=== PATIENT | male | born 1960 | race Caucasian/White ===

== ENCOUNTER 2017-12-31 16:09 | Inpatient (IN) ==
[2017-12-31 17:05] LABS: Baso % (Auto) 0.1 % (0.0-2.0); Eos % (Auto) 0.1 % (0.0-4.0); Hematocrit 49.5 % (39.0-51.0); Hemoglobin 17.7 gm/dL (13.0-17.0); Lymph # (Auto) 0.9 th/mm3 (1.0-4.8); Lymph % (Auto) 13.8 % (9.0-44.0); Mean Corpuscular HGB Conc 35.7 % (32.0-36.0); Mean Corpuscular Hemoglobin 31.5 pg (27.0-34.0); Mean Corpuscular Volume 88.4 fL (80.0-100.0); Mean Platelet Volume 9.8 fL (7.0-11.0); Neut # (Auto) 4.5 th/mm3 (1.8-7.7); Platelet Count 294 th/mm3 (150-450); Red Cell Distribution Width 13.3 % (11.6-17.2); White Blood Count 6.4 th/mm3 (4.0-11.0)
--- NOTE | 2017-12-31 17:07 | ED ---
HPI General Chief complaint: Nausea/Vomiting/Diarrhea Stated complaint: ABD Pain/Evac Time Seen by Provider: 12/31/17 16:30 Source: patient and old records reviewed Mode of arrival: EMS Limitations: no limitations History of Present Illness HPI narrative: This is a 57-year-old man presents to the emergency department complaining of nausea vomiting. He has some abdominal pain. [facility] was just [facility] according [facility] records. He has an ostomy for previous ulcerative colitis with colectomy. He states that it has been protruding some from his ostomy site. Been productive of green liquid stools. No significant change. Is been vomiting some recently. No abdominal distention. Related Data Home Medications Medication Instructions Recorded Confirmed benztropine 1 mg PO BID 12/31/17 12/31/17 divalproex [Depakote] 250 mg PO BID 12/31/17 12/31/17 perphenazine 2 mg PO DAILY 12/31/17 12/31/17 Allergies Allergy/AdvReac Type Severity Reaction Status Date / Time chlorpromazine AdvReac Severe DYSTONIA Verified 12/31/17 16:23 prochlorperazine AdvReac Severe DYSTONIAS Verified 12/31/17 16:23 Review of Systems ROS Unobtainable All other systems reviewed negative except as stated in HPI [facility] Medical History Medical History Ulcerative (chronic) enterocolitis (Acute) Surgical History Surgical History Knee joint replacement by other means (Acute) Social History Social History Substance History: No History of Abuse Second Hand Smoke Exposure: Yes Smoking Status: Former smoker How Often Do You Have a Drink Containing Alcohol: Monthly or less Recent Travel in [facility] within the Last 8 Weeks: No Recent Out of Country Travel within the Last 8 Weeks: No Exam Narrative Exam Narrative: GENERAL: Generally well-appearing 57-year-old man, little bit disheveled, nontoxic. SKIN: Focused skin assessment warm/dry. HEAD: Atraumatic. Normocephalic. EYES: Pupils equal and round. No scleral icterus. No injection or drainage. ENT: No nasal bleeding or discharge. Mucous membranes pink and moist. NECK: Trachea midline. No JVD. CARDIOVASCULAR: Regular rate and rhythm. No murmur appreciated. RESPIRATORY: No accessory muscle use. Clear to auscultation. Breath sounds equal bilaterally. GASTROINTESTINAL: Abdomen soft, nontender. Ostomy is productive of thin green liquid stools. There is no significant prolapse. Ostomy is patent. MUSCULOSKELETAL: No obvious deformities. No clubbing. No cyanosis. No edema. Course Initial Documented Vital Signs Temperature 97.2 F L 12/31/17 16:20 Pulse Rate 97 H 12/31/17 16:20 Respiratory Rate 20 12/31/17 16:20 Blood Pressure 131/95 H 12/31/17 16:20 Pulse Oximetry 97 12/31/17 16:20 Last Documented Vital Signs Temperature 97.2 F L 12/31/17 16:20 Pulse Rate 69 12/31/17 20:27 Respiratory Rate 16 12/31/17 20:27 Blood Pressure 145/97 H 12/31/17 20:27 Pulse Oximetry 95 12/31/17 20:27 Medical Decision Making MDM Narrative Medical decision making narrative: Well 57-year-old man, reportedly homeless, here ostomy is been productive of no change. Benign abdominal exam. Will check x-ray of the abdomen and make sure there is no obstruction given the vomiting. Clinically ostomy has been productive. Labs have been sent as well. Expect this will be normal. Recommend symptomatic treatment. @ 7:15 PM --- Accepted in transfer of care from Dr. Myers for follow-up of pending CT pending labs and patient disposition with expected plan of observation admission (S) Call from lab regarding abnormal potassium of 2.8 with patient with multiple episodes of vomiting BUN/creatinine GFR pending. CT abdomen and pelvis noncontrast consistent with partial small bowel obstruction patient with worsening renal function consistent with probable volume depletion and volume contracture with renal insufficiency also noted to have hypokalemia and hyponatremia patient given normal saline as well as IV potassium replacement; call placed to [facility] MD service ---accepted per Dr Francisco. Medical Records Medical records reviewed: Yes I reviewed the patient's medical records. Lab Data Result diagrams: 12/31/17 16:35 12/31/17 18:46 Lab Results 12/31/17 12/31/17 12/31/17 Range/Units 16:35 18:46 18:50 WBC 6.4 (4.0-11.0) th/mm3 RBC 5.60 (4.50-5.90) mil/mm3 Hgb 17.7 H (13.0-17.0) gm/dL Hct 49.5 (39.0-51.0) % MCV 88.4 (80.0-100.0) fL MCH 31.5 (27.0-34.0) pg MCHC 35.7 (32.0-36.0) % RDW 13.3 (11.6-17.2) % Plt Count 294 (150-450) th/mm3 MPV 9.8 (7.0-11.0) fL Neut % (Auto) 70.0 (16.0-70.0) % Lymph % (Auto) 13.8 (9.0-44.0) % [place] % (Auto) 16.0 H (0.0-8.0) % Eos % (Auto) 0.1 (0.0-4.0) % Baso % (Auto) 0.1 (0.0-2.0) % Neut # (Auto) 4.5 (1.8-7.7) th/mm3 Lymph # (Auto) 0.9 L (1.0-4.8) th/mm3 [place] # (Auto) 1.0 H (0.0-0.9) th/mm3 Eos # (Auto) 0.0 (0.0-0.4) th/mm3 Baso # (Auto) 0.0 (0.0-0.2) th/mm3 WBC Differential . Differential Comment Auto diff final Sodium 128 L (136-145) meq/L Potassium 2.8 L* (3.5-5.1) meq/L Chloride 87 L (98-107) meq/L Carbon Dioxide 26.3 (21.0-32.0) meq/L Anion Gap 15 (5-15) meq/L BUN 57 H (7-18) mg/dL Creatinine 1.93 H (0.60-1.30) mg/dL Estimated GFR 36 L (>89) mL/min Random Glucose 181 H (74-106) mg/dL Calcium 9.2 (8.5-10.1) mg/dL Total Bilirubin 0.8 (0.2-1.0) mg/dL AST 53 H (15-37) U/L ALT 89 H (12-78) U/L Alkaline Phosphatase 119 H (45-117) U/L Total Protein 8.2 (6.4-8.2) g/dL Albumin 4.2 (3.4-5.0) g/dL Lipase 160 (73-393) U/L Urine Color Yellow (Yellw/Straw) Urine Clarity Hazy H (Clear) Urine pH 5.0 (5.0-8.5) Ur Specific [place] 1.020 (1.002-1.035) Urine Protein Negative (Neg-Trace) mg/dL Urine Glucose (UA) Negative (Negative) mg/dL Urine Ketones Trace (Negative) mg/dL Urine Occult Blood Negative (Negative) Urine Nitrate Negative (Negative) Urine Bilirubin Negative (Negative) Urine Urobilinogen Less than 2 (Less than 2) mg/dL Ur Leukocyte Esterase Negative (Negative) Urine RBC Less than 1 (0-3) /hpf Urine WBC 1 (0-5) /hpf Ur Squamous Epith Cells <1 (0-5) /hpf Hyaline Casts 18 (0-3) /lpf Urine Mucus Few H (Occasional) /lpf Micro UA Comment Culture not ind Urine Culture Comments Culture not ind Imaging Data Radiologist's impression: ITS Impressions Abdomen X-Ray 12/31/17 16:57 CONCLUSION: Findings suspicious for small bowel obstruction. Abdomen/Pelvis CT 12/31/17 20:01 CONCLUSION: 1. Dilated small bowel in the upper abdomen with decompressed small bowel in the more distal lower abdomen concerning for some degree of obstruction. The transition point is not clearly seen. 2. Patient appears to be status post colectomy. There is an ostomy site in the right lower quadrant. 3. Sclerosis at the femoral head regions bilaterally concerning for prior avascular necrosis. Discharge Plan Discharge Disposition Patient Disposition: 30 Still Patient Discharge Condition Condition: Stable Discharge Details Diagnosis: Vomiting, Partial obstruction of small intestine, Mild renal insufficiency, Hypokalemia Physicians Team ED Provider: Rashmi Jimenez Primary Care Provider: Primary Care Shanda Miranda Rxs /Orders / Referrals /Forms Prescriptions: No Action perphenazine 2 mg Tablet 2 mg PO DAILY RF: 0 divalproex [Depakote] 250 mg Tablet,Delayed Release (Dr/Ec) 250 mg PO BID RF: 0 benztropine 1 mg Tablet 1 mg PO BID RF: 0 Status ED Status: With Doctor
--- NOTE | 2017-12-31 17:28 | XR ---
EXAM DATE: 12/31/2017 5:19 PM EDT AGE/SEX: 57 years / Male INDICATIONS: Abdominal pain/vomiting for 4 days. CLINICAL DATA: This is the patient's initial encounter. Patient reports that signs and symptoms have been present for 1 day and indicates a pain score of 5/10. MEDICAL/SURGICAL HISTORY: None. . colostomy. COMPARISON: No prior exams available for comparison. FINDINGS: Large air-fluid levels present in the stomach. There are scattered air-fluid levels and proximal smal l bowel compared to distal. Colostomy is seen in the right lower quadrant. Lung bases are clear. Ther e is no free air. Extensive of previous abdominal surgery changes are noted. CONCLUSION: Findings suspicious for small bowel obstruction. Electronically signed by: Xander Porras MD 12/31/2017 5:26 PM EDT
[2017-12-31 19:12] LABS: Bilirubin,Urine Negative (Negative); Clarity,Urine Hazy (Clear); Color,Urine Yellow (Yellw/Straw); Glucose,Urine (UA) Negative (Negative); Hyaline Casts,Urine 18 /lpf (0-3); Leukocyte Esterase,Urine Negative (Negative); Mucus,Urine Few /lpf (Occasional); Nitrite,Urine Negative (Negative); Squamous Epithelial Cell,Urine <1 /hpf (0-5)
[2017-12-31 19:39] LABS: Alanine Aminotransferase 89 U/L (12-78); Albumin 4.2 g/dL (3.4-5.0); Alkaline Phosphatase 119 U/L (45-117); Anion Gap 15 meq/L (5-15); Aspartate Aminotransferase 53 U/L (15-37); Blood Urea Nitrogen 57 mg/dL (7-18); Calcium 9.2 mg/dL (8.5-10.1); Carbon Dioxide 26.3 meq/L (21.0-32.0); Chloride 87 meq/L (98-107); Glomerular Filtration Rate 36 mL/min (>89); Glucose,Random 181 mg/dL (74-106); Lipase 160 U/L (73-393); Sodium 128 meq/L (136-145); Total Protein 8.2 g/dL (6.4-8.2)
[2017-12-31 19:41] LABS: Potassium 2.8 meq/L (3.5-5.1)
[2017-12-31] MEDS ORDERED: Potassium Chlor 10 mEq Premix 10 MEQ/100 ML PIGGYBACK IV.SIG ONE (20:01)
[2017-12-31] MEDS: Sod Chloride 0.9% Inj 1,000 ML IV.CONT SCH (20:23)
--- NOTE | 2017-12-31 21:24 | CT ---
EXAM DATE: 12/31/2017 8:23 PM EDT AGE/SEX: 57 years / Male INDICATIONS: Abdominal pain left lower quadrant. Nausea and vomiting. CLINICAL DATA: This is the patient's initial encounter. Patient reports that signs and symptoms have been present for 1 day and indicates a pain score of 7/10. MEDICAL/SURGICAL HISTORY: . Ulcerative colitis. Colostomy. RADIATION DOSE: 4.66 CTDI (mGy) COMPARISON: No prior exams available for comparison. TECHNIQUE: Multiple contiguous axial images were obtained through the abdomen. Images were obtained using multiple row detector helical technique. Using automated exposure control and adjustment of the mA and/or kV according to patient size, radiation dose was kept as low as reasonably achievable to o btain optimal diagnostic quality images. DICOM format image data is available electronically for rev iew and comparison. FINDINGS: Lower Lungs: There is increased density at the posterior lower lobes bilaterally being worse on the r ight likely related to dependent atelectasis. There is a mild amount of pericardial fluid seen. Liver: The liver has a homogeneous density without space-occupying lesion. There is no dilation of th e biliary tree. Spleen: Homogeneous density without enlargement. Pancreas: Unremarkable without mass or calcification. Kidneys: Normal in size and shape. No evidence of mass or hydronephrosis. Adrenal Glands: Unremarkable. Aorta: The aorta and proximal iliac vessels are grossly unremarkable without aneurysmal dilation. Bowel/Mesentery: There is distended small bowel in the upper abdomen. The small bowel measures up to 5 cm in diameter. The distal small bowel is decompressed. A clear transition point is not seen. The patient appears have an ostomy site in the right lower quadrant. There appears to be a suture line in the expected location of the rectum and distal sigmoid colon. The patient appears to be status post colectomy. Abdominal Wall: Again noted is the ostomy site in the right lower quadrant. Surgical fasteners are s een at the midline anterior abdominal wall. Retroperitoneum: No evidence of adenopathy in the retrocrural, para-aortic, or deep pelvic regions. Bladder: Contours are smooth. Reproductive Organs: No abnormal masses or calcifications seen. Inguinal: The inguinal region is unremarkable without evidence of adenopathy. Bony Structures: There is increased density at the femoral heads bilaterally concerning for avascula r necrosis. There are some degenerative change at the hip joints. CONCLUSION: 1. Dilated small bowel in the upper abdomen with decompressed small bowel in the more distal lower a bdomen concerning for some degree of obstruction. The transition point is not clearly seen. 2. Patient appears to be status post colectomy. There is an ostomy site in the right lower quadrant. 3. Sclerosis at the femoral head regions bilaterally concerning for prior avascular necrosis. Electronically signed by: Delvis Nova MD 12/31/2017 9:22 PM EDT
[2017-12-31] MEDS ORDERED: Temazepam 15 MG Capsule PO PRN (23:13)
[2017-12-31] MEDS ORDERED: Bisacodyl 10 MG Supp RECTAL PRN (23:13)
[2017-12-31] MEDS ORDERED: Potassium Chlor 20 mEq Premix 20 MEQ/100 ML PIGGYBACK IV.SIG ONE (23:16)
[2018-01-01] MEDS: Sod Chloride 0.9% Inj 1,000 ML IV.CONT SCH ×5 (03:51→17:40)
--- NOTE | 2018-01-01 05:04 | P.HP ---
History of Present Illness Service: [facility] Primary Care Physician: No Primary Care Physician Chief Complaint: Colostomy not working History of Present Illness: 57-year-old male with a past medical history significant for ulcerative colitis status post colostomy presents to the emergency department for the evaluation of his colostomy not working 1 day. The patient reported nausea and vomiting that started yesterday morning. He endorses intermittent chills and a distended abdomen. Patient also reports left-sided chest pain and shortness of breath. He states the chest pain is nonradiating. The patient denies any fevers. No lateralizing signs/symptoms. Inpatient Certification: I certify that the inpatient services were ordered in accordance with Medicare regulations governing the order. This includes certification that hospital inpatient services are reasonable and necessary and in the case of services not specified as inpatient-only under 42 CFR 419.22(n), that they are appropriately provided as inpatient services in accordance to with the 2-midnight benchmark under 43 CFR 412.3(e) Estimated Total Length of Stay (Days): 2 Plans for Post Hospital Care: Not yet determined Review of Systems All other systems reviewed negative except as stated in [facility] - History History Provided By: Patient - Medical History Medical History: Medical History (Last Updated 12/31/17 @ 00:24 by Dilma Zabala) Ulcerative (chronic) enterocolitis (Acute) - Surgical History Surgical History: Surgical History (Last Updated 12/31/17 @ 00:24 by Dilma Zabala) Knee joint replacement by other means (Acute) - Tobacco History Second Hand Smoke Exposure: Yes Smoking Status: Former smoker - Alcohol History How Often Do You Have a Drink Containing Alcohol: Monthly or less - Substance Use History Substance History: No History of Abuse - Travel History Recent Travel in the [place] Within the Last 8 Weeks: No Recent Travel Out of the Country Within the Last 8 Weeks: No - Immunization History Tetanus Immunization: >5 Years Hx Influenza Vaccine This Season: Yes Medications and Allergies Active Medications: Active Medications Al Hydroxide/Mg Hydroxide (Milk Of Missy Liq) 30 ml PO Q12H PRN PRN Reason: Mild Constipation Bisacodyl (Dulcolax Supp) 10 mg RECTAL DAILY PRN PRN Reason: SEVERE CONSITIPATION Sodium Chloride (Ns Inj) 1,000 mls @ 250 mls/hr IV.CONT .Q4H [facility] Last Admin: 01/01/18 03:51 Dose: 250 mls/hr Potassium Chloride/Sodium Chloride (Ns + Kcl 20 Meq Inj) 1,000 mls @ 84 mls/hr IV.CONT .[id number] [facility] Last Admin: 01/01/18 01:44 Dose: 84 mls/hr Lactulose (Lactulose Liq) 30 ml PO DAILY PRN PRN Reason: SEVERE CONSITIPATION Ondansetron HCl (Zofran Inj) 4 mg IV.PUSH Q6H PRN PRN Reason: NAUSEA OR VOMITING Senna/Docusate Sodium (Nata-Colace) 1 tab PO BID [facility] Sennosides (Senokot) 17.2 mg PO Q12H PRN PRN Reason: Moderate Constipation Temazepam (Restoril) 15 mg PO HS PRN PRN Reason: INSOMNIA Allergies Allergy/AdvReac Type Severity Reaction Status Date / Time chlorpromazine AdvReac Severe DYSTONIA Verified 12/31/17 16:23 prochlorperazine AdvReac Severe DYSTONIAS Verified 12/31/17 16:23 Home Medications Medication Instructions Recorded Confirmed Type benztropine 1 mg PO BID 12/31/17 12/31/17 History divalproex [Depakote] 250 mg PO BID 12/31/17 12/31/17 History perphenazine 2 mg PO DAILY 12/31/17 12/31/17 History Exam Vital signs: Vital Signs 12/31/17 16:20 12/31/17 16:28 12/31/17 18:48 Temperature 97.2 F L Pulse Rate 97 H 85 Respiratory Rate 20 19 Blood Pressure 131/95 H 136/92 H Pulse Oximetry 97 94 L 95 12/31/17 20:27 01/01/18 00:00 01/01/18 03:59 Temperature Pulse Rate 69 76 66 Respiratory Rate 16 18 16 Blood Pressure 145/97 H 137/86 120/79 Pulse Oximetry 95 94 L 96 Intake & Output 12/31/17 12/31/17 01/01/18 06:59 18:59 06:59 Intake Total 1000 / 1000 Output Total 400 / 400 Balance 600 / 600 Weight 62.142 kg Intake: IV 1000 / 1000 NS Inj 1,000 ML @ 250 mls/hr IV 1000 / 1000 .CONT .Q4H [facility] Rx#:[id number] Output: Emesis 400 / 400 Other: # Emeses 2 Narrative: Gen.: No acute distress Head: Normocephalic. Atraumatic. EENT: Pupils equal round and reactive to light. Nose without drainage. Airway intact. Throat without injection. Cardiovascular: Regular rate and rhythm. No murmurs, rubs or gallops. Respiratory: Lungs clear to auscultation bilaterally. No wheezes or rhonchi. Abdomen: Soft, nontender, positive distention. No peritoneal signs. Colostomy in place with gas in the bag. Musculoskeletal: No gross deformities. No edema. Skin: No obvious rashes or erythema. Neuro: Sensory and motor grossly intact. Cranial nerves II through XII grossly intact. Results - Labs CBC & Chem 7: 12/31/17 16:35 12/31/17 18:46 Labs: Laboratory Results - last 24 hr 12/31/17 12/31/17 12/31/17 16:35 18:46 18:50 WBC 6.4 RBC 5.60 Hgb 17.7 H Hct 49.5 MCV 88.4 MCH 31.5 MCHC 35.7 RDW 13.3 Plt Count 294 MPV 9.8 Neut % (Auto) 70.0 Lymph % (Auto) 13.8 [place] % (Auto) 16.0 H Eos % (Auto) 0.1 Baso % (Auto) 0.1 Neut # (Auto) 4.5 Lymph # (Auto) 0.9 L [place] # (Auto) 1.0 H Eos # (Auto) 0.0 Baso # (Auto) 0.0 WBC Differential . Differential Comment Auto diff final Sodium 128 L Potassium 2.8 L* Chloride 87 L Carbon Dioxide 26.3 Anion Gap 15 BUN 57 H Creatinine 1.93 H Estimated GFR 36 L Random Glucose 181 H Calcium 9.2 Total Bilirubin 0.8 AST 53 H ALT 89 H Alkaline Phosphatase 119 H Total Protein 8.2 Albumin 4.2 Lipase 160 Urine Color Yellow Urine Clarity Hazy H Urine pH 5.0 Ur Specific [place] 1.020 Urine Protein Negative Urine Glucose (UA) Negative Urine Ketones Trace Urine Occult Blood Negative Urine Nitrate Negative Urine Bilirubin Negative Urine Urobilinogen Less than 2 Ur Leukocyte Esterase Negative Urine RBC Less than 1 Urine WBC 1 Ur Squamous Epith Cells <1 Hyaline Casts 18 Urine Mucus Few H Micro UA Comment Culture not ind Urine Culture Comments Culture not ind - Imaging Impressions Abdomen X-Ray 12/31/17 16:57 CONCLUSION: Findings suspicious for small bowel obstruction. Abdomen/Pelvis CT 12/31/17 20:01 CONCLUSION: 1. Dilated small bowel in the upper abdomen with decompressed small bowel in the more distal lower abdomen concerning for some degree of obstruction. The transition point is not clearly seen. 2. Patient appears to be status post colectomy. There is an ostomy site in the right lower quadrant. 3. Sclerosis at the femoral head regions bilaterally concerning for prior avascular necrosis. Caprini VTE Risk Assessment Caprini VTE Risk Assessment: No/Low Risk (score <= 1) Caprini Risk Assessment Model: Point Value = 1 Point Value = 2 Point Value = 3 Point Value = 5 Age 41-60 Minor surgery BMI > 25 kg/m2 Swollen legs Varicose veins or History of unexplained or recurrent spontaneous Oral contraceptives or hormone replacement Sepsis (< 1 month) Serious lung disease, including pneumonia (< 1 month) Abnormal pulmonary function Acute myocardial infarction Congestive heart failure (< 1 month) History of inflammatory bowel disease Medical patient at bed rest Age 61-74 Arthroscopic surgery Major open surgery (> 45 min) Laparoscopic surgery (> 45 min) Malignancy Confined to bed (> 72 hours) Immobilizing plaster cast Central venous access Age >= 75 History of VTE Family history of VTE Factor V Leiden Prothrombin [id number] Lupus anticoagulant Anticardiolipin antibodies Elevated serum homocysteine Heparin-induced thrombocytopenia Other congenital or acquired thrombophilia Stroke (< 1 month) Elective arthroplasty Hip, pelvis, or leg fracture Acute spinal cord injury (< 1 month) Prophylaxis Regimen: Total Risk Factor Score Risk Level Prophylaxis Regimen 0-1 Low Early ambulation 2 Moderate Order ONE of the following: *Sequential Compression Device (SCD) *Heparin 5000 units SQ BID 3-4 Higher Order ONE of the following medications: *Heparin 5000 units SQ TID *Enoxaparin/Lovenox 40 mg SQ daily (WT < 150 kg, CrCl > 30 mL/min) *Enoxaparin/Lovenox 30 mg SQ daily (WT < 150 kg, CrCl > 10-29 mL/min) *Enoxaparin/Lovenox 30 mg SQ BID (WT < 150 kg, CrCl > 30 mL/min) AND/OR *Sequential Compression Device (SCD) 5 or more Highest Order ONE of the following medications: *Heparin 5000 units SQ TID (Preferred with Epidurals) *Enoxaparin/Lovenox 40 mg SQ daily (WT < 150 kg, CrCl > 30 mL/min) *Enoxaparin/Lovenox 30 mg SQ daily (WT < 150 kg, CrCl > 10-29 mL/min) *Enoxaparin/Lovenox 30 mg SQ BID (WT < 150 kg, CrCl > 30 mL/min) AND *Sequential Compression Device (SCD) Assessment and Plan - Plan Assessment/plan: 1. Partial small bowel obstruction CT of the abdomen/pelvis shows a dilated small bowel in the upper abdomen with decompressed small bowel in the distal lower abdomen concerning for some degree of obstruction. Transition point not clearly visualized. N.p.o. General surgery consulted, appreciate recommendations 2. Hypokalemia Patient's potassium 2.8 Status post IV repletion Monitor BMP 3. Chest pain ACS rule out pending; serial troponins/EKGs FEN N.p.o. Electrolytes: As above NS +20 KCl at 84 cc/hour
[2018-01-01 09:56] LABS: Baso % (Auto) 0.1 % (0.0-2.0); Eos % (Auto) 0.5 % (0.0-4.0); Hematocrit 42.2 % (39.0-51.0); Hemoglobin 14.4 gm/dL (13.0-17.0); Lymph # (Auto) 0.8 th/mm3 (1.0-4.8); Lymph % (Auto) 12.9 % (9.0-44.0); Mean Corpuscular HGB Conc 34.1 % (32.0-36.0); Mean Corpuscular Hemoglobin 30.7 pg (27.0-34.0); Mean Corpuscular Volume 89.8 fL (80.0-100.0); Mean Platelet Volume 10.1 fL (7.0-11.0); Mono # (Auto) 1.2 th/mm3 (0.0-0.9); Mono % (Auto) 17.8 % (0.0-8.0); Neut # (Auto) 4.5 th/mm3 (1.8-7.7); Neut % (Auto) 68.7 % (16.0-70.0); Platelet Count 180 th/mm3 (150-450); Red Cell Distribution Width 12.9 % (11.6-17.2); White Blood Count 6.5 th/mm3 (4.0-11.0)
[2018-01-01 10:16] LABS: Anion Gap 10 meq/L (5-15); Blood Urea Nitrogen 36 mg/dL (7-18); Calcium 7.5 mg/dL (8.5-10.1); Carbon Dioxide 25.7 meq/L (21.0-32.0); Chloride 99 meq/L (98-107); Creatine Kinase 240 U/L (39-308); Glomerular Filtration Rate 73 mL/min (>89); Glucose,Random 73 mg/dL (74-106); Magnesium 2.2 mg/dL (1.5-2.5); Potassium 3.5 meq/L (3.5-5.1); Sodium 135 meq/L (136-145)
[2018-01-01] MEDS: Senna/Docusate Sodium 8.6/50 MG Tablet PO SCH ×2 (10:22→21:14)
[2018-01-01 10:27] LABS: Platelet Morphology Normal (Normal)
[2018-01-01 12:10] LABS: Creatine Kinase 188 U/L (39-308)
--- NOTE | 2018-01-01 13:16 | ECG ---
Date Performed: 01/01/2018 Time Performed: 05:59:22 PTAGE: 57 years EKG: Sinus rhythm EARLY REPOLARIZATION BORDERLINE ECG Since the PREVIOUS TRACING , no significant change noted PREVIOUS TRACIN10/27/2013 18.00 DOCTOR: Shukri Solis Interpretating Date/Time 01/01/2018 13:14:31
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
[2018-01-02 07:36] LABS: Baso % (Auto) 0.2 % (0.0-2.0); Eos % (Auto) 0.9 % (0.0-4.0); Hematocrit 40.7 % (39.0-51.0); Hemoglobin 14.2 gm/dL (13.0-17.0); Lymph # (Auto) 1.2 th/mm3 (1.0-4.8); Lymph % (Auto) 22.8 % (9.0-44.0); Mean Corpuscular Hemoglobin 31.3 pg (27.0-34.0); Mean Corpuscular Volume 89.7 fL (80.0-100.0); Mean Platelet Volume 8.5 fL (7.0-11.0); Mono # (Auto) 0.9 th/mm3 (0.0-0.9); Mono % (Auto) 17.1 % (0.0-8.0); Neut # (Auto) 3.1 th/mm3 (1.8-7.7); Platelet Count 195 th/mm3 (150-450); Red Blood Count 4.54 mil/mm3 (4.50-5.90); White Blood Count 5.3 th/mm3 (4.0-11.0)
[2018-01-02 08:05] LABS: Alanine Aminotransferase 51 U/L (12-78); Albumin 3.1 g/dL (3.4-5.0); Alkaline Phosphatase 92 U/L (45-117); Anion Gap 6 meq/L (5-15); Aspartate Aminotransferase 24 U/L (15-37); Blood Urea Nitrogen 13 mg/dL (7-18); Calcium 8.1 mg/dL (8.5-10.1); Carbon Dioxide 28.1 meq/L (21.0-32.0); Chloride 98 meq/L (98-107); Glomerular Filtration Rate Greater Than 89 mL/min (>89); Glucose,Random 79 mg/dL (74-106); Potassium 3.2 meq/L (3.5-5.1); Sodium 132 meq/L (136-145); Total Protein 6.3 g/dL (6.4-8.2)
--- NOTE | 2018-01-02 08:08 | P.PN ---
Subjective Interval history: Follow up for partial SBO. Patient reports feeling much better today. He reports a lot of output in his colostomy overnight. Denies abdominal pain, nausea/vomiting. Tolerating liquid diet and would like to try more solid foods. He has no other medical complaints at this time. Physical Exam Vital signs: Vital Signs 01/01/18 11:00 01/01/18 15:00 01/01/18 20:00 Temperature 98.5 F Pulse Rate 53 L 60 56 L Respiratory Rate 18 17 16 Blood Pressure 117/72 125/68 121/69 Pulse Oximetry 96 96 97 01/02/18 00:00 01/02/18 04:00 Temperature 98.3 F 98.5 F Pulse Rate 62 60 Respiratory Rate 16 16 Blood Pressure 120/72 106/67 Pulse Oximetry 97 97 Intake & Output 01/01/18 01/02/18 01/02/18 18:59 06:59 18:59 Intake Total 2200 / 2200 1000 / 1000 Balance 2200 / 2200 1000 / 1000 Weight 65.5 kg Intake: IV 2200 / 2200 1000 / 1000 NS + KCl 20 mEq Inj 1,000 ML @ 1000 / 1000 84 mls/hr IV.CONT .[id number] [facility] Rx#:[id number] NS Inj 1,000 ML @ 250 mls/hr IV 1999 / 1999 .CONT .Q4H [facility] Rx#:[id number] Other: Weight On Admission 65.54 kg Narrative: GENERAL: Well-nourished, well-developed middle-age male patient in [facility]. SKIN: Warm and dry. No rash. HEENT: Normocephalic. Atraumatic. Pupils equal and round. Mucous membranes pink and moist. CARDIOVASCULAR: Regular rate and rhythm. No murmur appreciated. RESPIRATORY: No accessory muscle use. Clear to auscultation. Breath sounds equal bilaterally. GASTROINTESTINAL: Abdomen soft, non-tender, nondistended. Normoactive bowel sounds x4. Ileostomy in place, emptied into bedside commode with large amount of brown stool. MUSCULOSKELETAL: No obvious deformities. Extremities without clubbing, cyanosis , or edema. NEUROLOGICAL: Awake and alert. No obvious cranial nerve deficits. Motor grossly within normal limits. Moving all extremities spontaneously. Normal speech. PSYCHIATRIC: Appropriate mood and affect; insight and judgment normal. Results - Labs CBC & Chem 7: 01/02/18 07:00 01/02/18 07:00 Laboratory Results - last 24 hr 01/01/18 01/01/18 01/01/18 06:12 06:12 06:12 WBC 6.5 RBC 4.70 Hgb 14.4 D Hct 42.2 MCV 89.8 MCH 30.7 MCHC 34.1 RDW 12.9 Plt Count 180 D MPV 10.1 Prelim Diff (Auto) Slide review pending Neut % (Auto) 68.7 Lymph % (Auto) 12.9 Payne % (Auto) 17.8 H Eos % (Auto) 0.5 Baso % (Auto) 0.1 Neut # (Auto) 4.5 Lymph # (Auto) 0.8 L Payne # (Auto) 1.2 H Eos # (Auto) 0.0 Baso # (Auto) 0.0 WBC Differential . Diff Scan Auto diff confirmed Differential Comment . Platelet Estimate Low L Platelet Morphology Normal Hematology Comments Sodium 135 L Potassium 3.5 Chloride 99 D Carbon Dioxide 25.7 Anion Gap 10 BUN 36 H Creatinine 1.05 Estimated GFR 73 L Random Glucose 73 L D Calcium 7.5 L D Magnesium 2.2 Total Bilirubin AST ALT Alkaline Phosphatase Total Creatine Kinase 240 Cancelled Troponin I Less than 0.02 L Cancelled Total Protein Albumin 01/01/18 01/02/18 01/02/18 11:15 07:00 07:00 WBC 5.3 RBC 4.54 Hgb 14.2 Hct 40.7 MCV 89.7 MCH 31.3 MCHC 35.0 RDW 13.0 Plt Count 195 MPV 8.5 Prelim Diff (Auto) Neut % (Auto) 59.0 Lymph % (Auto) 22.8 Payne % (Auto) 17.1 H Eos % (Auto) 0.9 Baso % (Auto) 0.2 Neut # (Auto) 3.1 Lymph # (Auto) 1.2 Payne # (Auto) 0.9 Eos # (Auto) 0.0 Baso # (Auto) 0.0 WBC Differential . Diff Scan Differential Comment Auto diff final Platelet Estimate Platelet Morphology Hematology Comments Sodium 132 L Potassium 3.2 L Chloride 98 Carbon Dioxide 28.1 Anion Gap 6 BUN 13 Creatinine 0.83 Estimated GFR Greater than 89 Random Glucose 79 Calcium 8.1 L Magnesium Total Bilirubin 0.8 AST 24 ALT 51 Alkaline Phosphatase 92 Total Creatine Kinase 188 Troponin I Less than 0.02 L Total Protein 6.3 L D Albumin 3.1 L D Assessment and Plan - Plan 57-year-old male with a past medical history significant for ulcerative colitis status post colostomy presents to the emergency department for the evaluation of no output in colostomy x1 day. Partial small bowel obstruction: acute -CT abdomen/pelvis reviewed, shows a dilated small bowel in the upper abdomen with decompressed small bowel in the distal lower abdomen concerning for some degree of obstruction; Transition point not clearly visualized. -General surgery consulted -Initially kept NPO, advanced to clears as patient started having output in ileostomy -Repeat KUB unremarkable with normal bowel gas pattern -Patient with large amount of stool output, no abdominal pain/nausea/vomiting -Diet advanced to regular, patient tolerated well -Cleared for discharge by general surgery Hypokalemia: patient's potassium 2.8 -Given IV KCl replacement -Repeat BMP shows improvement, K 3.2, given additional po KCl replacement prior to discharge Chest pain: very atypical, suspect secondary to GI complaints as above -ACS ruled out with negative serial cardiac enzymes and EKG without acute ischemic changes -chest pain resolved DVT Prophylaxis: patient is ambulatory, being discharged Discharge Planning: Case management to assist with discharge planning as the patient is homeless. Discharge patient to home Condition on discharge: Stable Regular diet as tolerated Ad Kelly activity Rx written: no new meds Follow-up with primary care physician
--- NOTE | 2018-01-02 08:28 | XR ---
EXAM DATE: 01/02/2018 8:23 AM EDT AGE/SEX: 57 years / Male INDICATIONS: Diarrhea. CLINICAL DATA: This is the patient's initial encounter. Patient reports that signs and symptoms have been present for 4 - 6 days and indicates a pain score of 5/10. MEDICAL/SURGICAL HISTORY: Ulcerative colitis. Colostomy. [place] [facility] [place] [facility] & [place]. . FINDINGS: The abdominal bowel gas pattern is normal. No abnormal masses, calcifications, or organomegaly is se en. Osteoarthritic changes involving the hip joints bilaterally with sclerotic changes involving the femoral heads possibly related to AVN. Surgical sutures overlying the midline and right lower quadran t. CONCLUSION: Normal bowel gas pattern. Electronically signed by: Fred Wilkinson MD 01/02/2018 8:26 AM EDT
[2018-01-02] MEDS: Senna/Docusate Sodium 8.6/50 MG Tablet PO SCH (10:07)
--- NOTE | 2018-01-02 11:06 | P.PNGS ---
<Cordelia Chowdhury - Last Filed: 01/02/18 11:02> Subjective Interval history: Resting in bed Hungry Symptoms all resolved Physical Exam Vital signs: Vital Signs 01/01/18 15:00 01/01/18 20:00 01/02/18 00:00 Temperature 98.5 F 98.3 F Pulse Rate 60 56 L 62 Respiratory Rate 17 16 16 Blood Pressure 125/68 121/69 120/72 Pulse Oximetry 96 97 97 01/02/18 04:00 Temperature 98.5 F Pulse Rate 60 Respiratory Rate 16 Blood Pressure 106/67 Pulse Oximetry 97 Intake & Output 01/01/18 01/02/18 01/02/18 18:59 06:59 18:59 Intake Total 2200 / 2200 1000 / 1000 Balance 2200 / 2200 1000 / 1000 Weight 65.5 kg Intake: IV 2200 / 2200 1000 / 1000 NS + KCl 20 mEq Inj 1,000 ML @ 1000 / 1000 84 mls/hr IV.CONT .[id number] [facility] Rx#:[id number] NS Inj 1,000 ML @ 250 mls/hr IV 1999 / 1999 .CONT .Q4H [facility] Rx#:[id number] Other: Weight On Admission 65.54 kg Narrative: Alert and awake Cardio: RRR Resp: CTAB Abd: soft non tender non distended; ileostomy in place with output Assessment and Plan - Plan 57 year old male with a history of ulcerative colitis and ileostomy placement; with abdominal pain/nausea/vomiting/distention -Symptoms resolved -+ liquid stool in ileostomy -Advance to soft diet -Exam benign -KUB stable -Monitor electrolytes---replace K today -If tolerates diet okay to DC this afternoon -No follow up need in the office -Discussed with JO ANN Martinez Discussed Condition With: JO ANN Martinez <Alhaji Leyva - Last Filed: 01/17/18 07:14> Assessment and Plan - Attending Attestation patient seen at bedside pain better, tolerating diet ostomy output d/c planning
--- NOTE | 2018-01-02 18:08 | ECG ---
Date Performed: 01/01/2018 Time Performed: 11:17:17 PTAGE: 57 years EKG: SINUS BRADYCARDIA BORDERLINE ECG PREVIOUS TRACING : 01/01/2018 05.59 COMPARED WITH PREVIOUS TRACING NO SIGNIFICANT CHANGE DOCTOR: Artie Leblanc Interpretating Date/Time 01/02/2018 18:07:58
== END 2018-01-02 16:04 | disposition home or self-care (01) ==
LOC: NEDA 16:09 → NEPC 16:09 → NEDH 01-01 06:33 → NEPGCP 01-01 16:16
PROVIDERS: ADMIT Internal Medicine; ATTEND Internal Medicine